=== PATIENT | female | born 1980 | race Caucasian/White ===

== ENCOUNTER 2021-01-24 16:09 | Outpatient (CLI) | payer BC, SELFPAY ==
--- NOTE | ~2021-01-24 | MM_ITS ---
EXAMINATION: MM screening robert BI w mathew HISTORY: Screening mammogram TECHNIQUE: Craniocaudal and mediolateral oblique 3-D tomosynthesis images were obtained and synthetic 2-D images were generated. CAD analysis was submitted and interpreted. COMPARISON: 03/22/2009 BREAST PARENCHYMAL COMPOSITION: The breasts are heterogeneously dense, which may obscure small masses . FINDINGS: There is no evidence of suspicious mass, calcification, or architectural distortion to sugg est malignancy in either breast. There has been no suspicious interval change. IMPRESSION: 1. No mammographic evidence of malignancy. 2. Recommend routine screening mammography in one year. BI-RADS Category 1: Negative Reviewed, dictated and finalized at location A.
== END 2021-01-24 16:10 | disposition home or self-care (01) ==
LOC: ANHIMG 16:12
PROVIDERS: PCP Family Medicine; Visit Provider Obstetrics & Gynecology
DX: Z12.31 Encounter for screening mammogram for malignant neoplasm of breast (principal)
CPT/HCPCS: 77063; 77067

== ENCOUNTER 2022-07-10 17:34 | Outpatient (CLI) | payer BC, SELFPAY ==
--- NOTE | ~2022-07-10 | MM_ITS ---
EXAMINATION: MM screening robert BI w mathew HISTORY: Screening TECHNIQUE: Craniocaudal and mediolateral oblique 3-D tomosynthesis images were obtained and synthetic 2-D images were generated. CAD analysis was submitted and interpreted. COMPARISON: No prior mammogram is available for comparison at this institution. BREAST PARENCHYMAL COMPOSITION: Breast composed of scattered areas of fibroglandular density FINDINGS: There is a new focal asymmetry centered in the lower outer quadrant of the left breast. The right breast is stable. No new masses, calcifications or architectural distortion. IMPRESSION: 1. New left breast asymmetry. 2. Additional mammographic views and possible breast ultrasound are recommended. BI-RADS Category 0: Incomplete: Needs additional imaging evaluation. Reviewed, dictated and finalized at location A. OR [employer] IMPRESSION: 1. New left breast asymmetry. 2. Additional mammographic views and possible breast ultrasound are recommended . BI-RADS Category 0: Incomplete: Needs additional imaging evaluation.
== END 2022-07-10 17:35 | disposition home or self-care (01) ==
PROVIDERS: PCP Family Medicine; Visit Provider Obstetrics & Gynecology
DX: Z12.31 Encounter for screening mammogram for malignant neoplasm of breast (principal); R92.8 Other abnormal and inconclusive findings on diagnostic imaging of breast
CPT/HCPCS: 77063; 77067

== ENCOUNTER 2022-08-06 12:44 | Outpatient (CLI) | payer BC, SELFPAY ==
--- NOTE | ~2022-08-06 | MMUS_ITS ---
EXAMINATION: MM diagnostic robert LT w mathew, US breast LT complete HISTORY: New left mammographic asymmetry reported on 07/10/2022 screening mammogram TECHNIQUE: Additional 3-D tomosynthesis images of the left breast were performed and synthetic 2-D im ages were generated. CAD analysis was submitted and interpreted. High resolution complete left breast ultrasound examination clinical 4 quadrants and subareolar area was performed. COMPARISON: 07/10/2022, 01/24/2021 bilateral screening mammogram examinations FINDINGS: MAMMOGRAPHIC FINDINGS: Circumscribed 3.8 x 8.2 mm opacity is noted in the outer central left breast. No other suspicious mas s or architectural distortion, calcification, skin thickening or retraction is detected mammographica lly. ULTRASOUND: 5:00 1 cm from nipple: 7.2 x 6.8 x 4.9 mm septated cyst with through transmission posterior enhanceme nt, no internal vascularity, benign in appearance 9:00 6 cm from nipple: Parallel circumscribed septated cyst measuring 8.2 x 12.1 x 5.3 mm, without in ternal vascularity. No suspicious mass or shadowing is detected. IMPRESSION: 1. Benign findings 2. Routine mammographic screening is recommended BI-RADS Category 2: Benign finding(s). Reviewed, dictated and finalized at location A. GER [employer] IMPRESSION: 1. Benign findings 2. Routine mammographic screening is recommended BI-RADS Category 2: Benign finding(s).
== END 2022-08-06 12:45 | disposition home or self-care (01) ==
LOC: ANHIMG 12:47
PROVIDERS: PCP Nurse Practitioner; Visit Provider Obstetrics & Gynecology
DX: R92.8 Other abnormal and inconclusive findings on diagnostic imaging of breast (principal)
CPT/HCPCS: 76641; 77061; 77065; G0279